=== PATIENT | male | born 1935 | race Caucasian/White ===

== ENCOUNTER 2018-07-06 06:06 | Observation (INO) | payer MEDICARE ==
[2018-07-06] MEDS ORDERED: Nitroglycerin 2% Ointment 1 INCH/1 GM Packet ONE (06:38)
[2018-07-06 06:45] LABS: ALT (SGPT) 22 U/L (8-55); AST (SGOT) 29 U/L (5-34); Albumin 4.1 g/dL (3.4-4.8); Alkaline Phosphatase 76 U/L (40-150); Anion Gap 8 mmol/L (10-20); BUN (Urea Nitrogen) 16 mg/dL (8.4-25.7); Bilirubin, Total 0.6 mg/dL (0.2-1.2); Calc. Creatinine Clearance 0 mL/min (70-130); Calcium 9.7 mg/dL (7.8-10.44); Carbon Dioxide 29 mmol/L (23-31); Chloride 105 mmol/L (98-107); Estimated GFR-MDRD 76; Globulin 3.3 g/dL (2.4-3.5); Glucose 123 mg/dL (83-110); Lipase 37 U/L (8-78); Potassium 3.9 mmol/L (3.5-5.1); Protein, Total 7.4 g/dL (5.8-8.1); Sodium 138 mmol/L (136-145)
[2018-07-06 06:49] LABS: CKMB 1.4 ng/mL (0-6.6); Troponin I Less than 0.010 ng/mL (< 0.028)
--- NOTE | 2018-07-06 08:36 | RAD ---
SINGLE VIEW CHEST: Date: 07/06/18 COMPARISON: 08/07/16. HISTORY: Chest pain. FINDINGS: Single view of the chest shows a normal sized cardiomediastinal silhouette. There is no evidence of c onsolidation, mass, or pleural effusion. The patient has a right shoulder prosthesis. Degenerative ch anges are seen in the left shoulder and spine. IMPRESSION: No evidence of acute cardiopulmonary disease. POS: CET
[2018-07-06 08:40] LABS: Bilirubin Negative (Negative); Blood, Urine Negative (Negative); Clarity CLEAR (Clear); Glucose, Urine (Dipstick) Negative (Negative); Leukocyte Negative (Negative); Nitrite Negative (Negative); Protein, Urine (Dipstick) Negative (Neg-Trace); Specific Gravity, Urine 1.011 (1.002-1.036); pH, Urine 6.5 (5.0-9.0)
[2018-07-06 09:48] LABS: Troponin I Less than 0.010 ng/mL (< 0.028)
[2018-07-06] MEDS ORDERED: Ondansetron ODT 4 MG TAB PO PRN (11:25)
[2018-07-06] MEDS ORDERED: Nitroglycerin 0.4 MG TAB (25 Tab Bottle) PO PRN (11:25)
[2018-07-06] MEDS ORDERED: Acetaminophen 325 MG TAB PO PRN (11:25)
--- NOTE | 2018-07-06 11:25 | PDOC.FPRHP ---
- History of Present Illness Chief Complaint: Chest pain History of Present Illness: This is an 83 yo male with a pmh of HLD who presents to the ed with a cc of chest pain. He states that the pain woke him up from sleep this morning at 0400. He states the pain felt like 10-15 pounds resting on his chest. He states the pain was constant with no radiation and was cut in half with nitro. He reports associated nausea and diaphoresis. He states that he has never had a pain like this before. He states he took aspirin 325 at home. He does report a pain in his back that radiates down his back. This occurs with movement. He denies SOB at the time of onset. ED Course: Nitro paste 1 inche aspirin 324 - Allergies/Adverse Reactions Allergies Allergy/AdvReac Type Severity Reaction Status Date / Time No Known Allergies Allergy Verified 08/14/16 16:09 - Home Medications Medication Instructions Recorded Confirmed Type Atorvastatin Calcium [Lipitor] 10 mg PO HS 08/07/16 07/06/18 History Fish Oil 1,000 mg PO DAILY 08/07/16 07/06/18 History Multivitamin [Daily Multiple 1 each PO DAILY 08/07/16 07/06/18 History Vitamin] Polyethylene Glycol 3350 [Miralax] 17 gm PO HS 08/07/16 07/06/18 History Aspirin [Ecotrin] 81 mg PO DAILY 07/06/18 07/06/18 History - History PMHx: HLD PSHx: Right shoulder surgery FHx: Father had heart troubles from the age 30 Social:Denies MANDY - Review of Systems General: denies: weight/appetite/sleep changes, night sweats Eyes: denies: eye pain, vision changes ENT: denies: nasal congestion Respiratory: denies: cough, shortness of breath Cardiovascular: reports: chest pain. denies: palpitation, edema Gastrointestinal: reports: nausea. denies: vomiting, diarrhea, constipation Genitourinary: denies: dysuria Skin: denies: rashes, lesions Musculoskeletal: reports: pain (back pain) Neurological: denies: numbness, syncope, seizure Psychological: denies: anxiety, depression - Vital signs BP: 124/80 HR: 71 RR: 16 Tmax: 97.5 Pox: 97% on ra Wt: 88.45 - Physical Exam Constitutional: NAD, awake, alert and oriented HEENT: normocephalic and atraumatic, EOMI, MMM, good dention Neck: supple, FROM, no JVD Chest: no-tender to palpation Heart: RRR, normal S1/S2, no murmurs/rubs/gallops, pulses present Lungs: CTAB, no respiratory distress, good air movement Abdomen: soft, non-tender, bowel sounds present, no masses/distention Musculoskeletal: normal structure, normal tone Neurological: no focal deficit Skin: capillary refill <2 seconds Heme/Lymphatic: no unusual bruising or bleeding Psychiatric: normal mood and affect, good judgment and insight, intact recent and remote memory FMR H&P: Results - Labs Result Diagrams: 07/06/18 06:10 Lab results: Sodium 138 mmol/L (136-145) 07/06/18 06:10 Potassium 3.9 mmol/L (3.5-5.1) 07/06/18 06:10 Chloride 105 mmol/L (98-107) 07/06/18 06:10 Carbon Dioxide 29 mmol/L (23-31) 07/06/18 06:10 BUN 16 mg/dL (8.4-25.7) 07/06/18 06:10 Creatinine 0.95 mg/dL (0.6-1.3) 07/06/18 06:10 Glucose 123 mg/dL (83-110) H 07/06/18 06:10 Calcium 9.7 mg/dL (7.8-10.44) 07/06/18 06:10 Total Bilirubin 0.6 mg/dL (0.2-1.2) 07/06/18 06:10 AST 29 U/L (5-34) 07/06/18 06:10 ALT 22 U/L (8-55) 07/06/18 06:10 Alkaline Phosphatase 76 U/L (40-150) 07/06/18 06:10 CK-MB (CK-2) 1.4 ng/mL (0-6.6) 07/06/18 06:10 Serum Total Protein 7.4 g/dL (5.8-8.1) 07/06/18 06:10 Albumin 4.1 g/dL (3.4-4.8) 07/06/18 06:10 Lipase 37 U/L (8-78) 07/06/18 06:10 Urine Ketones Trace mg/dL (Negative) H 07/06/18 08:23 Urine Blood Negative (Negative) 07/06/18 08:23 Urine Nitrite Negative (Negative) 07/06/18 08:23 Ur Leukocyte Esterase Negative (Negative) 07/06/18 08:23 - EKG Interpretation EKG: NSR, no st elevations or depressions - Radiology Interpretation Chest x-ray Status: report reviewed by me (No evidence of acute cardiopumonary disease) FMR H&P: A/P - Problem List (1) Atypical chest pain Current Visit: Yes Status: Acute Code(s): R07.89 - OTHER CHEST PAIN (2) HLD (hyperlipidemia) Current Visit: Yes Status: Acute Code(s): E78.5 - HYPERLIPIDEMIA, UNSPECIFIED - Plan This is a 83 yo male with a PMH of HLD Atypical chest pain likely 2/2 musculoskeletal strain vs gerd vs unstable angina -Troponins neg x2, trend one more -EKG shows NSR, no ST change -CXR no acute processes -Cardiac stress test -Pt can likely be discharged if stress test is normal HLD -hold crestor until after stress Code: Full Prophylaxis: none Family: and daughter at bedside and plan discussed with them Disposition: Pt. can likely be discharged if stress test is normal FMR H&P: Upper Level - Pertinent history 83M awoke with left sided chest pain around 0400 this morning. Described as a crushing pressure. Pain does not radiate, but was associated with nausea and diaphoresis. Improved with nitro given in ED. Pain is constant since onset. No prior history of CV disease, but he takes Crestor at home. Family history of CAD in father. ED: ASA and nitrobid - Pertinent findings EKG is low voltage but NSR troponin negative x 2 CXR normal - Plan Date/Time: 07/06/18 1125 Atypical chest pain: seems to be MS in nature. Given health history, very unlikely to be unstable angina. Trend troponins. Stress test ordered given heart score of 4. I, Fitz Diallo, have evaluated this patient and agree with findings/plan as outlined by internet marketing assistant resident. Pertinent changes/additions are listed here.
[2018-07-06 11:27] VITALS: BMI 27.9
[2018-07-06] MEDS ORDERED: Morphine 4 MG/ML VIAL SLOW IVP PRN (11:50)
[2018-07-06 13:05] LABS: Cardiac Risk 2.8 (Less than 4.5)
[2018-07-06 13:09] LABS: Troponin I Less than 0.010 ng/mL (< 0.028)
[2018-07-06 16:07] VITALS: BP 144/74; TEMP 97.9
--- NOTE | 2018-07-06 16:42 | NM ---
NUCLEAR MEDICINE CARDIAC STRESS WITH EF AND WALL MOTION 07/06/18 HISTORY: Atypical chest pain. COMPARISON: None. TECHNIQUE: Patient administered 1080 millicuries of technetium 99m Sestamibi for rest imaging and 32 millicuries of technetium 99m Sestamibi for stress imaging. FINDINGS: There is homogeneous distribution in the left ventricle on the attenuation correction images. No reve rsibility of fixed defect. TID - 0.82. End diastolic volume is 74 mL. End systolic volume is 18 mL. CARDIAC GATING: Normal motion and thickening. 76% ejection fraction. IMPRESSION: 1. No evidence of reversibility of fixed defect. 2. 76% ejection fraction. POS: DAVID
--- NOTE | 2018-07-09 06:52 | DIS ---
DATE OF ADMISSION: 07/06/2018 DATE OF DISCHARGE: 07/06/2018 RESIDENT: Ceasar Swan, DO DISCHARGE ATTENDING: Frankie Skinner MD CONSULTS: None. PROCEDURE: Chest x-ray showed no acute cardiopulmonary process. Nuclear stress test showing homogeneous distribution of left ventricle, on attenuation correction imaging, no reversible or fixed defects. PRIMARY DIAGNOSIS: Likely musculoskeletal chest pain. SECONDARY DIAGNOSIS: Hyperlipidemia. DISCHARGE MEDICATIONS: 1. Tylenol 650 p.o. every 4 hours p.r.n. pain. 2. Aspirin 81 mg p.o. daily. 3. Atorvastatin 10 mg p.o. daily. 4. Fish oil 1000 mg p.o. daily. 5. Multivitamin 1 tablet p.o. daily. 6. MiraLAX 1 packet p.o. daily. DISCONTINUED MEDICATIONS: None. BRIEF HOSPITAL COURSE/HISTORY OF PRESENT ILLNESS: This is an 83-year-old male with past medical history of hyperlipidemia, who presents to the ER after being woken up this morning by chest pain approximately 4 in the morning. The patient states that the pain felt like approximately 10 to 15 pounds sitting on his chest. The patient has tried Tylenol in attempt to relieve pain with no avail. The patient was seen in the ER, where an EKG showed no ST changes with normal sinus rhythm. Troponins were obtained and were negative x3. The patient denied any cardiac history. The patient underwent nuclear stress test, which showed no fixed or reversible defects. At this point, the patient was discharged to home. DISPOSITION: Stable. DISCHARGE INSTRUCTIONS: 1. Location: Home. 2. Activity: As tolerated. 3. Diet: Heart healthy. 4. Follow up with 2 weeks. Job ID: [id number]
--- NOTE | 2018-07-10 12:17 | EKG ---
Test Reason : CHEST PAIN Blood Pressure : / mmHG Vent. Rate : 066 BPM Atrial Rate : 066 BPM P-R Int : 200 ms QRS Dur : 096 ms QT Int : 378 ms P-R-T Axes : 051 -12 030 degrees QTc Int : 396 ms Normal sinus rhythm Normal ECG Confirmed by HARISH SOTO, RADHA Alvarez ([id number]), restaurant expeditor FAY PATEL ([id number]) on 07/10/2018 12:16:32 PM Referred By: Confirmed By:RADHA MOREIRA MD
== END 2018-07-06 18:20 | disposition home or self-care (01) ==
LOC: ERS 06:06 → INTOOBSV 08:30 → ERHOLD 08:30 → 2SW 11:17
PROVIDERS: ADMIT Family Medicine; ATTEND Family Medicine
DX: R07.89 Other chest pain (principal); E78.5 Hyperlipidemia, unspecified; Z79.82 Long term (current) use of aspirin; Z79.899 Other long term (current) drug therapy
CPT/HCPCS: 71045; 78452; 80053; 80061; 81003; 82553; 83690; 84484 ×2; 93005; 93017; 94760; 96374; 99285; A9500; 36415; J2270